=== PATIENT | female | born 1980 | race Caucasian/White ===

== ENCOUNTER 2019-12-15 19:55 | Emergency (ER) | payer OTHER, SELFPAY ==
[2019-12-15 19:59] VITALS: BP 115/87; PULSE 103; RESP 16; TEMP 36.8; O2SAT 100
[2019-12-15] MEDS: TETANUS,DIPHTHERIA,AC PERTUSSIS ADULT (0.5 ML) BOOSTRIX IM (20:44)
--- NOTE | 2019-12-15 20:50 | ED.SKABFB ---
HPI - Skin/Abscess/Foreign Bdy General Chief complaint: Skin/Abscess/Foreign Body Stated complaint: hand lac Time Seen by Provider: 12/15/19 20:09 Source: patient Mode of arrival: ambulatory Limitations: no limitations History of Present Illness HPI narrative: This patient is a 39 year old female right hand dominant who presents for evaluation of a left thumb laceration. She reports she accidentally cut her left thumb at tip. She report it cut under the tip of her nail. She was able to get bleeding controlled on arrival. She reports she took ibuprofen for her pain. She denies difficulty moving her thumb. Related Data Allergies Allergy/AdvReac Type Severity Reaction Status Date / Time Penicillins Allergy Unknown Swelling Verified 12/15/19 20:04 of Lip/Tongue/Throat Review of Systems Review of Systems: All systems reviewed & are unremarkable except as noted in HPI and below PMFSH Past Medical History Medical History (Updated 12/15/19 @ 21:00 by Ginger Harper MD) Patient denies medical problems Surgical History Surgical History (Updated 12/15/19 @ 20:59 by Ginger Harper MD) Hx of appendectomy Social History Social History (Updated 12/15/19 @ 21:08 by Ginger Harper MD) Smoking status: Current every day smoker Exam Const: General: no acute distress and alert Orientation/consciousness: patient oriented x3 HENMT: Head: normocephalic Face and sinus: face symmetric Mouth: Yes Normal oral and palatal mucosa present and Yes oropharynx normal Throat: posterior oropharynx normal Eyes: EOM: EOMs intact bilaterally Resp: Effort & Inspection: normal respiratory effort Neuro: General: patient oriented x3 and moves all extremities Extrem: Other: left thumb with full ROM. there is 0.5 cm diagnonal laceration to ulnar side lateral of tip of thumb with small piece of nail involved. No bleeding. Psych: Mental Status: mental status grossly normal Affect: normal affect Course Reevaluation(s) Reevaluation #1: Patient did not want me to have to use needles for treatment so she declined digital block and sutures. I removed tip of nail that was cut with scissors. Cleaned with saline . Applied antibiotic ointment to tip and applied pressure and bandage. Bleeding is controlled. I discussed wound care with patient . Date: 12/15/19 Time: 20:54 Vital Signs Vital signs: Vital Signs Temperature 98.3 F 12/15/19 19:59 Pulse Rate 103 H 12/15/19 19:59 Respiratory Rate 16 12/15/19 19:59 Blood Pressure 115/87 12/15/19 19:59 Pulse Oximetry 100 12/15/19 19:59 Temperature 98.3 F 12/15/19 19:59 Pulse Rate 103 H 12/15/19 19:59 Respiratory Rate 16 12/15/19 19:59 Blood Pressure 115/87 12/15/19 19:59 Pulse Oximetry 100 12/15/19 19:59 Discharge Plan Discharge Clinical Impression: Avulsion of skin of finger Qualifiers: Encounter type: initial encounter Qualified Code(s): S61.209A - Unspecified open wound of unspecified finger without damage to nail, initial encounter Laceration of finger with damage to nail Qualifiers: Encounter type: initial encounter Finger: thumb Laterality: left Patient Disposition: Home, Self-Care Condition: Stable Instructions: Antibiotic Form Additional Instructions: Today you were evaluated for a finger laceration. Part of your nail was cut off. You can keep bandage on for 24 hours. Keep it covered while you work to prevent exposures. Keep clean with soap and water. If it rebleeds just apply pressure and wrap with bandage. Follow-up/Referrals: PHYSICIAN,[facility] MANAGER [Primary Care Provider] - Artis Healy DO [Physician] - Discharge Date/Time: 12/15/19 21:05
--- NOTE | 2019-12-15 20:55 | PC.NURSE ---
Bupivacaine medication not given and held by EDP.
[2019-12-15 21:04] VITALS: BP 116/73; PULSE 76; RESP 18; O2SAT 100
== END 2019-12-15 21:05 | disposition home or self-care (01) ==
PROVIDERS: Emergency Provider General Practice
DX: S61.012A Laceration without foreign body of left thumb without damage to nail, initial encounter (principal); W27.4XXA Contact with kitchen utensil, initial encounter; F17.200 Nicotine dependence, unspecified, uncomplicated; Z23 Encounter for immunization
CPT/HCPCS: 90471; 90715; 99282

== ENCOUNTER 2021-03-17 12:31 | Outpatient (CLI) | payer BC, OTHER, SELFPAY | END 2021-03-17 12:32 | disposition home or self-care (01) | LOC: ANHLAB 12:35 | PROVIDERS: Visit Provider Obstetrics & Gynecology | DX: O02.1 Missed abortion (principal); Z3A.00 Weeks of gestation of pregnancy not specified | CPT/HCPCS: 36415; 84702; 86850; 86900; 86901 ==

== ENCOUNTER → 2021-03-29 01:03 | Outpatient (CLI) | payer BC, OTHER, SELFPAY ==
[2021-03-29 21:22] LABS: SARS-CoV-2 RNA PCR Positive
== END ==
PROVIDERS: Visit Provider Obstetrics & Gynecology
DX: Z01.812 Encounter for preprocedural laboratory examination (principal); U07.1 COVID-19
CPT/HCPCS: C9803; U0003; U0005

== ENCOUNTER 2021-03-31 01:38 | Day surgery (SDC) | payer BC, OTHER, SELFPAY ==
[2021-03-24 11:34] VITALS: BMI 27.4
--- NOTE | 2021-03-24 11:43 | PC.NURSE ---
Report to the Outpatient Waiting Room, entrance under the green pavilion located off [facility], at time 0900 on date 03/31/21. OR Time: 1100. - You and your visitor will be asked a series of questions to screen for COVID 19 for your protection. - A mask is required within the hospital. - Only one visitor is allowed at this time. Patient visitors will be guided where to wait when not with patient. Preoperative COVID Testing Requirements: No COVID Test needed if: (proof is required; if not received patient will have Rapid Test prior to entry) - Patient has received COVID Vaccine at least 14 days prior to procedure date or - Patient has positive COVID test result within last 90 days of surgery date. COVID Test needed if above criteria is not met If not COVID vaccinated a COVID test must be conducted within 72 hours of surgery and patient is asked to isolate self from time of testing until procedure. You will go to the [facility] for your COVID testing. The [facility] is located at the corner of [address] from [facility]. COVID TEST 03/29 AT 0935 You will only be called if COVID results are positive and your surgeon may reschedule your elective surgery date. Patients may have clear liquids (water, carbonated beverages, clear teas, apple juice) until 3 hours prior to surgery with a maximum of 20 ounces. - No food from midnight until time of surgery Take the following medications with a SIP of water the morning of surgery: NONE Medications to discontinue per physician: N/A Date to take last dose: N/A Please no make-up, nail jamaican, hairspray, perfume, deodorant, or body powder the day of surgery. No jewelry (including any body piercings) or valuables the day of surgery, leave them at home. Please take a shower or bath the night before, or the morning of, surgery with an antibacterial soap. Wear comfortable, loose fitting clothing. - Jewelry must be removed prior to entering the operating room. Rings and piercings that are not removed may be cut off. - The hospital will not accept responsibility for valuables. - Please leave all valuables, including medications, at home the day of surgery. If you are going home after surgery, a licensed class c truck driver must drive you home. - NO public transportation without another adult. - We recommend that an adult stay with you for 24 hours following discharge. - We also recommend that you do not drive, make important decision, drink alcoholic beverages, or take any drugs that were not prescribed by your health care provider for at least 24 hours after your discharge time. Follow any additional instructions given to you from your surgeon. Telephone instructions given to WALT JACKSON and asked if any additional questions and then verbalized understanding. Patient advised to call surgeon office or pre surgery nurse liaison [phone] if any additional questions.
--- NOTE | 2021-03-31 07:50 | P.PNAN_ITS ---
Anes - Initial Pre Proc Eval Procedure: Operation Date: 03/31/21 15:15 Proposed Procedures p Suction Dilation and Curettage - Adan Acevedo MD Date/Time: 03/31/21 07:50 Surgeon: Adan Acevedo MD Pre Op Diagnosis: Missed Ab Patient Data Age: 40 Gender: F Height: 1.63 m Weight: 72.57 kg Allergies Allergy/AdvReac Type Severity Reaction Status Date / Time Penicillins Allergy Unknown Swelling Verified 03/31/21 14:45 of Lip/Tongue/Throat codeine Allergy Hives Verified 03/31/21 14:45 Home Medications Medication Instructions Recorded Confirmed Type No Home Medications 03/24/21 03/31/21 History Patient hx anesthesia problems: none Family hx anesthesia problems: none Results Review: All pre-operative results and documents have been reviewed as part of the pre-operative evaluation. [facility] Past Medical History Medical History Patient denies medical problems Surgical History Surgical History Hx of appendectomy Social History Social History Smoking packs per day: 0.75 Smoking cigarettes per day: 15.0 Years smoked: 20 Smoking pack-years: 15.00 Smoking status: Current every day smoker Tobacco type: cigarettes Alcohol intake: never Substance use: current Substance use type: marijuana Last use: 03/16/21 Living arrangements: with family Additional living arrangements comments: DAUGHTER Spiritual care concerns: No Anes - Eval Final PreProcedure Day of Procedure 03/31/21 07:50 Patient weight: overweight Heart: regular rate and rhythm Lungs: clear to auscultation and normal air movement Airway: Mallampati scale class II Neurological: alert and oriented Last oral intake: >/= 8 hours ASA classification: II Emergent: no Anesthetic plan: proceed Anesthesia type and monitoring: general GIVS and standard monitoring Results Review: All pre-operative results and documents have been reviewed as part of the pre-operative evaluation. Informed Consent: The patient's anesthetic plan and its attendant risks and benefits were discussed with the patient/family/POA. Questions were solicited and answers provided to the satisfaction of the patient/family/POA.
--- NOTE | 2021-03-31 13:07 | PM.IMHP ---
H&P: HPI History of Present Illness Date/Time: 03/31/21 13:07 40 y/o whose LMP would put her at 10w4d gestation. She had an ultrasound exam in the office on 03/17 showing an IUP with CRL 6 weeks gestation, no embryonic cardiac activity. She had a bHCG of 42,704. MBT Apos. No bleeding. No cramping. Initially had opted for expectant management, but is now interested in surgical management. Chief Complaint: Miscarriage Review of Systems Review of Systems: All systems reviewed & are unremarkable except as noted in HPI and below PMFSH Past Medical History Medical History Patient denies medical problems Surgical History Surgical History Hx of appendectomy Social History Social History Smoking packs per day: 0.75 Smoking cigarettes per day: 15.0 Years smoked: 20 Smoking pack-years: 15.00 Smoking status: Current every day smoker Tobacco type: cigarettes Alcohol intake: never Substance use: current Substance use type: marijuana Last use: 03/16/21 Living arrangements: with family Additional living arrangements comments: DAUGHTER Spiritual care concerns: No Meds Home Medications and Allergies Home Medications Medication Instructions Recorded Confirmed Type No Home Medications 03/24/21 03/24/21 History Allergies Allergy/AdvReac Type Severity Reaction Status Date / Time Penicillins Allergy Unknown Swelling Verified 03/24/21 11:33 of Lip/Tongue/Throat codeine Allergy Hives Verified 03/24/21 11:34 Exam Const: Orientation/consciousness: patient oriented x3 Other: Well-developed, well-nourished female in no acute distress. Neck: Thyroid: thyroid normal Lymphatic: no lymphadenopathy noted (in neck, axilla or inguinal nodes) Resp: Effort & Inspection: normal respiratory effort Auscultation: clear to auscultation bilaterally Cardio: Rate: regular rate Rhythm: regular rhythm Heart sounds: S1 normal heart sound present and S2 normal heart sound present GI: Other: ABD: Soft, nontender, nondistended. No guarding or rebound tenderness. No hepatosplenomegaly. : General: Yes no CVA tenderness Other: External genitalia: normal female hair distribution, without lesion. Urethral meatus: no lesion, non prolapsed. Bladder: no mass, nontender Vagina: well-estrogenized, without lesion or discharge. No cystocele or rectocele. Cervix: no lesion or discharge. Uterus: small, anteverted, freely mobile, nontender Adnexa: no mass or tenderness. Anus/perineum: no lesions, nontender Back/Spine/Pelvis: Back: no CVA tenderness Skin: General skin exam: normal color and no rashes or lesions noted Neuro: General: patient oriented x3 Extrem: Other: Extremities: nontender with no edema Psych: Mental Status: mental status grossly normal Affect: normal affect Assessment and Plan Assessment and plan (1) Missed : Code(s): O02.1 - Missed Status: Acute Assessment and Plan: A: Missed SAB. P: She desires surgical management as above. I have offered her a dilation and suction curettage. She understands risks of surgery to include risks of anesthesia, risks of pain, infection, bleeding, blood products, thromboembolic phenomena and damage to adjacent structures such as bowel, bladder, ureters, blood vessels and nerves. She understands all these risks and elects to proceed with surgery.
[2021-03-31] MEDS: ACETAMINOPHEN 500 MG TABLET 1000 MG PO (14:35)
[2021-03-31] MEDS: LACTATED RINGERS 1,000 ML 30 ML IV CONT (14:40)
[2021-03-31 14:59] VITALS: BP 100/58; PULSE 78; RESP 18; TEMP 36.7; O2SAT 99
--- NOTE | 2021-03-31 15:06 | WPDHPUPDATE1 ---
History and Physical Update Update Date/Time: 03/31/21 15:06 History and Physical has been reviewed, including an updated exam of the patient. There are NO changes in the patient's condition. Risks, benefits, and alternatives have been discussed and questions answered. Patient agrees to proceed with procedure.
[2021-03-31 15:42] VITALS: BP 101/64; PULSE 79; RESP 16; O2SAT 96
--- NOTE | 2021-03-31 15:45 | W.PM.PROC2 ---
Procedure Note - Detailed Date of Procedure 03/31/21 Pre-op Diagnosis Missed Ab Post-op Diagnosis same Procedure Performed Dilation and suction curettage Surgeon Adan Acevedo MD Anesthesia MAC and local (1% lidocaine) Findings POC noted Description of Procedure The patient was taken to the operating room where she was prepared and draped in the usual sterile fashion in the dorsal lithotomy position. The bladder was drained with a red rubber catheter. A sterile speculum was placed into the vagina. The anterior lip of the cervix was grasped with a single-tooth tenaculum. Ten mL of 1% lidocaine was administered in a paracervical block. The cervix was gently dilated using Hegar dilators until an 8mm dilator could be passed. The 8mm curved tip suction curette was advanced. Suction curettage was performed and products of conception were aspirated. Sharp curettage was then performed until a good uterine cry was noted. A final pass with the suction curette was made. The tenaculum was removed. Hemostasis was excellent. Sponge, lap, needle and instrument counts were correct. The patient was taken to the recovery room in stable condition. I was present and scrubbed for the entire procedure. Estimated Blood Loss 50 Drains No Packing No Pathology yes (endometrial curettings) Complications None Condition stable Disposition PACU
--- NOTE | 2021-03-31 15:57 | SUR.PHASEII ---
PT AWAKE AND ALERT. DENIES PAIN OR NAUSEA.
--- NOTE | 2021-03-31 16:06 | SUR.PHASEII ---
PT AWAKE AND ALERT. TALKATIVE. DENIES PAIN OR NAUSEA. STATES READY TO GO HOME AND EAT
[2021-03-31 16:07] VITALS: BP 98/65; PULSE 70; RESP 14; O2SAT 97
== END 2021-03-31 16:32 | disposition home or self-care (01) ==
PROVIDERS: Visit Provider Obstetrics & Gynecology
PROC: (CPT 59820; principal; 2021-03-31 15:15)
DX: O02.1 Missed abortion (principal); Z3A.10 10 weeks gestation of pregnancy; F17.210 Nicotine dependence, cigarettes, uncomplicated; F12.90 Cannabis use, unspecified, uncomplicated
CPT/HCPCS: 59820; 88305; A9270; C9803; J1885; J2250; J2704; J3010; J7120; U0003; U0005

== ENCOUNTER 2021-04-04 15:08 | Emergency (ER) | payer BC, OTHER, SELFPAY ==
--- NOTE | ~2021-04-04 | US_ITS ---
EXAMINATION: US pelvic complete w TV DATE: 04/04/2021 18:12 INDICATION: Vaginal bleeding TECHNIQUE: Multiple transabdominal and endovaginal sonographic images of the pelvis were obtained. COMPARISON: None. FINDINGS: The uterus measures 9.1 x 4.9 x 7.2 cm. The endometrial complex measures 10 mm. There is an approximately 3.1 x 2.8 x 2.4 cm heterogeneous area in the lower uterine segment/endocervical canal. The right ovary measures 3.5 x 1.5 x 1.4 cm. The left ovary measures 2.4 x 1.6 x 1.7 cm. There is no rmal vascular flow in the ovaries. There is a small volume of likely physiologic free fluid in the pe lvis. IMPRESSION: 1. Heterogeneous area in the lower uterine segment/endocervical canal, likely hematoma. Reviewed, dictated and finalized at location F. PRINTING MACHINE OPERATOR IMPRESSION: 1. Heterogeneous area in the lower uterine segment/endocervical canal, likely h ematoma.
[2021-04-04 15:36] VITALS: BP 111/72; PULSE 82; RESP 16; TEMP 36; O2SAT 99
--- NOTE | 2021-04-04 17:26 | ED.GENADULT ---
HPI - General Adult General Chief complaint: Vaginal Bleeding Stated complaint: vag bleeding, D & C / Time Seen by Provider: 04/04/21 16:55 Source: patient Mode of arrival: ambulatory Limitations: no limitations History of Present Illness HPI narrative: Patient presents for evaluation of vaginal bleeding. She indicates she underwent a D+C four days ago per Dr Acevedo. She had some mild spotting following the procedure. She also had some mild pain that she thought was gas pain . 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 She has gone through two pads since symptom onset. She states bleeding has slowed down and she now has mild spotting. She denies any fever, chills, nausea and vomiting. She has some mild left sided pelvic pain that radiates into her back. She had some problems with constipation recently. She took a dulcolax and was able to have a bowel movement today. Surgical history positive for appendectomy and appendectomy. Related Data Allergies Allergy/AdvReac Type Severity Reaction Status Date / Time Penicillins Allergy Unknown Swelling Verified 03/31/21 14:45 of Lip/Tongue/Throat codeine Allergy Hives Verified 03/31/21 14:45 Review of Systems Review of Systems: CONSTITUTIONAL: Denies fever, chills, or sweats. EYES: Denies visual changes, redness, or discharge. ENT: Denies rhinorrhea, congestion, sore throat, or otalgia. CARDIOVASCULAR: Denies chest pain, palpitations, or edema. RESPIRATORY: Denies cough or dyspnea. GASTROINTESTINAL: Denies abdominal pain, nausea, vomiting, or diarrhea. GENITOURINARY: Reports pelvic pain. Reports vaginal bleeding earlier, now improved SKIN: Denies rash or itching. MUSCULOSKELETAL: Denies back pain, joint pain, or myalgia. NEUROLOGIC: Denies headache, numbness, dizziness, or weakness. PSYCHIATRIC: Denies anxiety or depression. [facility] Past Medical History Medical History Patient denies medical problems Surgical History Surgical History History of History of dilatation and curettage Hx of appendectomy Family History Family History Mother No pertinent past medical history Social History Social History Smoking packs per day: 0.75 Smoking cigarettes per day: 15.0 Years smoked: 20 Smoking pack-years: 15.00 Smoking status: Current every day smoker Tobacco type: cigarettes Alcohol intake: never Substance use: current Substance use type: marijuana Last use: 03/16/21 Additional living arrangements comments: DAUGHTER Spiritual care concerns: No Exam Narrative: GENERAL: Well-appearing, well-nourished, and in no acute distress. HEAD: Normocephalic, atraumatic. EYES: PERRLA and EOMI. ENT: Nares clear, no rhinorrhea or epistaxis. Mucous membranes moist. Oropharynx without tonsillar hypertrophy exudate or other lesions. Bilateral TMs pearly matute nonbulging NECK: Supple. No adenopathy or masses. No carotid bruits or JVD CHEST: Clear to auscultation. No respiratory distress. No wheezes rales or rhonchi HEART: Regular rate and rhythm. No murmur heard. Normal peripheral pulses. ABDOMEN: Soft, mild tenderness in suprapubic region and BLQ without rebound. Abdomen is nondistended, normal active bowel sounds. GENITAL: No external genital lesions. No adnexal tenderness. No cervical motion tenderness. There is a moderate amount of dried blood noted in the vaginal vault EXTREMITIES: Normal range of motion. No edema. SKIN: Warm, dry, no rash. NEURO: No focal deficits. Alert and oriented x3. PSYCH: Normal mood and affect. Course Course Emergency Course: This is a 40-year-old female who presented with complaints of vaginal bleeding following a D&C. By the
[2021-04-04 17:35] VITALS: BP 110/76; RESP 16; TEMP 36.8; O2SAT 99
[2021-04-04 17:51] LABS: Basophils Absolute Auto 0.1 K/mm3 (0.0-0.1); Basophils Percent Auto 0.3 % (0.2-1.2); Eosinophils Absolute Auto 0.1 K/mm3 (0-0.3); Eosinophils Percent Auto 0.5 % (0-4.4); Hematocrit 34.9 % (37.0-47.0); Hemoglobin 11.4 g/dL (12.0-15.0); Immature Granulocyte Absolute 0.07 K/mm3 (0.00-0.031); Immature Granulocyte Percent A 0.5 % (0-0.5); Lymphocytes Percent Auto 9.7 % (18.3-44.2); Mean Corpuscular HGB Conc 32.7 g/dl (32-36); Mean Corpuscular Hemoglobin 30.6 pg (26-34); Mean Corpuscular Volume 93.6 fl (80-100); Mean Platelet Volume 8.6 fl (7.4-10.4); Monocytes Absolute Auto 0.7 K/mm3 (0.1-0.6); Monocytes Percent Auto 4.6 % (2.6-8.5); Neutrophils Absolute Auto 13.1 K/mm3 (1.3-6.7); Neutrophils Percent Auto 84.4 % (45.5-73.1); Platelet Count Result 447 k/mm3 (150-375); Red Blood Count 3.73 M/mm3 (4.2-5.4); Red Cell Distribution Width 14.6 % (11.5-14.5); White Blood Count 15.5 K/mm3 (4.5-10.0)
[2021-04-04 18:01] LABS: Prothrombin Time 13.1 Seconds (11.1-14.7)
[2021-04-04 18:02] LABS: Partial Thromboplastin Time 32.9 SECONDS (22.3-36.8)
[2021-04-04 18:07] LABS: Alanine Aminotransferase 17 U/L (4-35); Albumin Level 4.1 g/dL (3.5-5.1); Alkaline Phosphatase 34 U/L (38-126); Anion Gap 10 mmol/L (8-16); Aspartate Amino Transferase 22 U/L (14-36); Bilirubin,Total 0.3 mg/dL (0.2-1.3); Blood Urea Nitrogen 10 mg/dL (7-17); Calcium 9.3 mg/dL (8.4-10.2); Carbon Dioxide 23 mmol/L (22-30); Chloride 104 mmol/L (98-107); Estimated CRCL calculation 122 ml/min; Estimated Glomerular Filt Rate > 60; Glucose 95 mg/dL (65-110); Lipase 34 U/L (23-300); Potassium 3.9 mmol/L (3.4-5.0); Sodium 137 mmol/L (137-145)
[2021-04-04 18:39] LABS: Add Urine Microscopic? YES; Appearance Urine Cloudy (Clear); Bilirubin Urine Negative (Negative); Blood Urine 2+ (Negative); Color Urine Amber (Yellow); Glucose Urine UA Negative (Negative); Ketones Urine Negative (Negative); Leukocyte Esterase Ur Negative LEU/UL (Negative); Mucus Urine Rare /lpf; Nitrate Urine Negative (Negative); Protein Urine Negative (Negative); RBC Urine >75 /hpf (0-2); Specific Grav Ur 1.025 (1.001-1.035); Squamous Epithelial Cell Urine Occasional /hpf (Few); Urobilinogen Urine Negative mg/dL (<2.0)
--- NOTE | 2021-04-04 19:27 | PC.NURSE ---
RN assisted provider with vaginal exam, pt tolerated well, SO at bedside during the exam
[2021-04-04 20:11] VITALS: BP 112/72; PULSE 78; RESP 18; O2SAT 98
== END 2021-04-04 20:15 | disposition home or self-care (01) ==
PROVIDERS: Emergency Provider Nurse Practitioner; PCP Obstetrics & Gynecology
DX: N99.840 Postprocedural hematoma of a genitourinary system organ or structure following a genitourinary system procedure (principal); F17.210 Nicotine dependence, cigarettes, uncomplicated
CPT/HCPCS: 36415; 76830; 76856; 80053; 81001; 81025; 83690; 85025; 85610; 85730; 99284

== ENCOUNTER 2022-03-15 10:47 | Emergency (ER) | payer BC, OTHER, SELFPAY ==
[2022-03-15 11:48] VITALS: BP 103/73; PULSE 97; RESP 18; TEMP 36.6; O2SAT 100
--- NOTE | 2022-03-15 12:04 | ED.URI ---
HPI - URI/Sore Throat General Chief Complaint: Upper Respiratory Infection Stated Complaint: fever,congestion,bilateral ear pain Time Seen by Provider: 03/15/22 12:05 Source: patient and RN notes reviewed Mode of arrival: ambulatory Limitations: no limitations History of Present Illness HPI Narrative: 41-year-old female presented for complaint of headache, body aches, sinus pressure/congestion, cough, fever/chills. onset 2 days. Endorses 1 episode of diarrhea today. She is taking DayQuil NyQuil for symptoms. She denies sick contacts But states [place] a [place] She denies shortness of breath, wheezing, vomiting. Smokes 1PPD and marijuana. MD elicited complaint: cough Related Data Home Medications Medication Instructions Recorded Confirmed norethindrone (contraceptive) 0.35 0.35 mg PO DAILY 03/15/22 03/15/22 mg tablet Allergies Allergy/AdvReac Type Severity Reaction Status Date / Time Penicillins AdvReac Severe Swelling Verified 03/15/22 11:42 of Lip/Tongue/Throat codeine AdvReac Intermediate Hives Verified 03/15/22 11:42 Review of Systems Review of Systems: ROS per HPI [facility] Past Medical History Medical History Patient denies medical problems Surgical History Surgical History History of History of dilatation and curettage Hx of appendectomy Family History Family History Mother No pertinent past medical history Social History Social History Smoking packs per day: 0.75 Smoking cigarettes per day: 15.0 Years smoked: 20 Smoking pack-years: 15.00 Smoking status: Current every day smoker Tobacco type: cigarettes Alcohol intake: never Substance use: current Substance use type: marijuana Last use: 03/16/21 Additional living arrangements comments: DAUGHTER Spiritual care concerns: No Exam Narrative: GENERAL: Ill-appearing, nontoxic EYES: PERRLA, conjunctivae clear ENT: Mucous membranes moist. TMs pearly matute with dull light reflex bilaterally; no tragal tenderness. Oropharynx erythematous without lesions or exudate, tonsils absent; no drooling, no hoarseness, no trismus, uvula midline. CHEST: Clear to auscultation, breath sounds equal. HEART: Regular rate and rhythm. No murmur heard. SKIN: Warm, dry, no rash. Course Course Emergency Course: Patient is aware of diagnosis, understands and agrees to treatment plan. Anticipatory guidance given. Patient agrees to follow-up as directed and is aware of reasons to seek care at the emergency department. Portions of this record may have been created with voice recognition software Level of Care: Express Care Visit Vital Signs Vital signs: Vital Signs Temperature 97.8 F 03/15/22 11:48 Pulse Rate 97 03/15/22 11:48 Respiratory Rate 18 03/15/22 11:48 Blood Pressure 103/73 03/15/22 11:48 Pulse Oximetry 100 03/15/22 11:48 Oxygen Delivery Room Air 03/15/22 11:48 Temperature 97.8 F 03/15/22 11:48 Pulse Rate 97 03/15/22 11:48 Respiratory Rate 18 03/15/22 11:48 Blood Pressure 103/73 03/15/22 11:48 Pulse Oximetry 100 03/15/22 11:48 Oxygen Delivery Room Air 03/15/22 11:48 reviewed MDM - URI/Sore Throat MDM Narrative Medical decision making narrative: Due to lack of resources, unable to test for influenza at this time. High suspicion for flu. COVID test result reviewed with patient. Patient verbalizes understanding. Advised supportive measures and signs and symptoms to go to the ER. Patient is appropriate for outpatient treatment and follow-up. Differential Diagnosis Differential diagnosis: Likely upper respiratory infection, sinusitis, viral infection and influenza Lab Data Labs: Lab Results
== END 2022-03-15 12:38 | disposition home or self-care (01) ==
PROVIDERS: Emergency Provider Nurse Practitioner Family
DX: B34.9 Viral infection, unspecified (principal); F17.210 Nicotine dependence, cigarettes, uncomplicated; Z20.822 Contact with and (suspected) exposure to COVID-19
CPT/HCPCS: 87426; 99213; C9803; G0463

== ENCOUNTER 2022-06-28 17:39 | Emergency (ER) | payer BC, OTHER, SELFPAY ==
--- NOTE | 2022-06-28 17:41 | ED.EAR ---
HPI - Ear Problem General Chief complaint: Ear Stated complaint: rt ear discomfort Time Seen by Provider: 06/28/22 17:41 Source: patient Mode of arrival: ambulatory Limitations: no limitations History of Present Illness HPI Narrative: Jazmine is a 42-year-old female patient presenting to the clinic today with complaints of right ear pain/congestion, swishing noise times 2 weeks. She reports she is also having some dizziness with this. Related Data Home Medications Medication Instructions Recorded Confirmed norethindrone (contraceptive) 0.35 0.35 mg PO DAILY 03/15/22 06/28/22 mg tablet Allergies Allergy/AdvReac Type Severity Reaction Status Date / Time Penicillins AdvReac Severe Swelling Verified 06/28/22 17:50 of Lip/Tongue/Throat codeine AdvReac Intermediate Hives Verified 06/28/22 17:50 Review of Systems Review of Systems: Pertinent positives per HPI. Patient denies any fever, chills, rash, headache, visual changes, dizziness, cough, shortness of breath, chest pain, palpitations, nausea, vomiting, diarrhea, constipation, abdominal pain, or any urinary issues. PMFSH Past Medical History Medical History Patient denies medical problems Surgical History Surgical History History of History of dilatation and curettage Hx of appendectomy Family History Family History Mother No pertinent past medical history Social History Social History Smoking packs per day: 0.75 Smoking cigarettes per day: 15.0 Years smoked: 20 Smoking pack-years: 15.00 Smoking status: Current every day smoker Tobacco type: cigarettes Alcohol intake: never Substance use: current Substance use type: marijuana Last use: 03/16/21 Living arrangements: with family Additional living arrangements comments: DAUGHTER Spiritual care concerns: No Comments At the time of my signature, I reviewed and agree with the nursing past medical, surgical, social, and family history. There is no relevant family history pertinent to the patient complaint. Exam Narrative: General: Well-developed, well nourished, in no apparent distress Head: Normocephalic, atraumatic Eyes: Pupils equally round and reactive to light bilaterally, EOM intact, sclera and conjunctive clear, no discharge, lids normal Ears: Left tMs intact and clear, right TM intact, retracted, dull, ear canals clear, mild tenderness to palpation over the right eustachian tube, no drainage, grossly hearing normal. Nose: Nares patent, clear discharge, no inflammation, no sinus tenderness. Mouth: Oral pharynx without lesions or masses, good dentition, MMM. Neck: Supple, trachea midline, no enlargement of anterior or posterior cervical nodes, no thyroid masses or goiter palpable. Cardio: Regular rate and rhythm, s1 and s2 normal, no murmur appreciated. Resp: Clear to auscultation bilaterally, no rhonchi, rales, wheezing or rubs Course Course Emergency Course: Portions of this record may have been created with voice recognition software. Level of Care: Express Care Visit Vital Signs Vital signs: Vital signs reviewed Medical Decision Making MDM Narrative Medical decision making narrative: At the time of visit patient is resting comfortably on the exam table. I suspect the patient may have you right-sided eustachian tube dysfunction. Supportive measures were discussed with the patient she voiced understanding of the discharge instructions and agrees to treatment plan. Prescription for prednisone was sent to the pharmacy. If symptoms persist recommend follow-up with her PCP or ENT to rule out Meniere disease. Differential Diagnosis Differential Diagnosis: Otitis media, otitis externa, eustachian
[2022-06-28 17:47] VITALS: BP 103/87; PULSE 93; RESP 16; TEMP 36.8; O2SAT 100
== END 2022-06-28 18:06 | disposition home or self-care (01) ==
PROVIDERS: Emergency Provider Nurse Practitioner Family
DX: H69.91 Unspecified Eustachian tube disorder, right ear (principal); F17.210 Nicotine dependence, cigarettes, uncomplicated; F12.90 Cannabis use, unspecified, uncomplicated
CPT/HCPCS: 99213; G0463

== ENCOUNTER 2022-07-15 11:34 | Emergency (ER) | payer BC, OTHER, SELFPAY ==
[2022-07-15 11:40] VITALS: BP 107/78; PULSE 96; RESP 16; TEMP 36.6; O2SAT 100
--- NOTE | 2022-07-15 12:06 | ED.URI ---
HPI - URI/Sore Throat General Chief Complaint: Upper Respiratory Infection Stated Complaint: Sore Throat,Sinus Pressure Time Seen by Provider: 07/15/22 11:55 Source: patient and RN notes reviewed Mode of arrival: ambulatory Limitations: no limitations History of Present Illness HPI Narrative: Patient presents today with a 4 to five-day history of cough, sinus pain and pressure, postnasal drip. She also had a fever up to 101 last night. She has been taking Tylenol and ibuprofen as well as using Flonase. Reports sick contact with daughter who was diagnosed with a URI. Daughter tested negative for COVID-19 and influenza. Related Data Home Medications Medication Instructions Recorded Confirmed norethindrone (contraceptive) 0.35 0.35 mg PO DAILY 03/15/22 07/15/22 mg tablet Allergies Allergy/AdvReac Type Severity Reaction Status Date / Time Penicillins AdvReac Severe Swelling Verified 07/15/22 11:40 of Lip/Tongue/Throat codeine AdvReac Intermediate Hives Verified 07/15/22 11:40 Review of Systems Review of Systems: CONSTITUTIONAL: Denies body aches, chills, or sweats.+ fever EYES: Denies visual changes, redness, or discharge. ENT: Denies rhinorrhea, sore throat, or otalgia.+ congestion, sinus pressure, postnasal drip CARDIOVASCULAR: Denies chest pain, palpitations, or edema. RESPIRATORY: Denies dyspnea.+ cough GASTROINTESTINAL: Denies abdominal pain, nausea, vomiting, or diarrhea. GENITOURINARY: Denies dysuria or hematuria. SKIN: Denies rash, itching, or wounds. MUSCULOSKELETAL: Denies back pain, joint pain, or myalgia. NEUROLOGIC: Denies headache, numbness, tingling, or weakness. PSYCH: Denies depression or anxiety. [facility] Past Medical History Medical History Patient denies medical problems Surgical History Surgical History History of History of dilatation and curettage Hx of appendectomy Family History Family History Mother No pertinent past medical history Social History Social History Smoking packs per day: 0.75 Smoking cigarettes per day: 15.0 Years smoked: 20 Smoking pack-years: 15.00 Smoking status: Current every day smoker Tobacco type: cigarettes Alcohol intake: never Substance use: current Substance use type: marijuana Last use: 03/16/21 Living arrangements: with family Additional living arrangements comments: DAUGHTER Spiritual care concerns: No Comments At time of signature, I have reviewed and agree with nursing past medical, surgical, social and family history unless otherwise noted. Please see nursing chart for further information. There is no relevant family history pertinent to the presenting complaint Exam Narrative: GENERAL: Mildly ill-appearing, well-nourished, and in no acute distress. HEAD: Normocephalic, atraumatic. EYES: EOMI. No redness or drainage. Conjunctivae normal. ENT: Mucous membranes pink and moist. Nares congested. Bilateral nasal turbinates are swollen with rhinorrhea. TMs normal bilaterally. Throat normal with clear postnasal drainage. Uvula midline. NECK: Normal AROM. Supple. No lymphadenopathy. CHEST: No respiratory distress. Clear to auscultation. Tight cough noted. HEART: Regular rate and rhythm. No murmur appreciated. Normal peripheral pulses. EXTREMITIES: Normal range of motion. No edema. SKIN: Warm, dry, no rash. Capillary refill normal. Normal skin turgor. NEURO: No focal deficits. Alert and oriented x3. Gait steady. PSYCH: Normal affect. No signs of depression or anxiety. Course Course Level of Care: Express Care Visit Vital Signs Vital signs: Vital Signs Temperature 97.8 F 07/15/22 11:40 Pulse Rate 96 07/15/22 11:40 Respiratory Rate 16
== END 2022-07-15 12:10 | disposition home or self-care (01) ==
PROVIDERS: Emergency Provider Nurse Practitioner
DX: J06.9 Acute upper respiratory infection, unspecified (principal); F17.210 Nicotine dependence, cigarettes, uncomplicated
CPT/HCPCS: 99213; G0463

== ENCOUNTER 2023-01-09 17:36 | Emergency (ER) | payer BC, OTHER, SELFPAY ==
[2023-01-09 17:52] VITALS: BP 120/76; PULSE 90; RESP 16; TEMP 36.4; O2SAT 100
--- NOTE | 2023-01-09 18:03 | ED.DENTAL ---
HPI - Dental/Oral General Chief complaint: Dental/Oral Stated complaint: dental pain Time Seen by Provider: 01/09/23 18:03 Source: patient, RN notes reviewed and old records reviewed Mode of arrival: ambulatory Limitations: no limitations History of Present Illness HPI Narrative: 42 year old [facility] with complaints of most posterior right upper molar pain and swelling and redness of her gums since Monday night. Patient reports some swelling to the right side of her face and some terrible taste in her mouth. Patient reports that she has not had any fevers, chills or sweats or any body aches. Patient reports that she has gargled with salt water and she has been taking Ibuprofen and also Tylenol alternating for her discomfort. Patient does not have an established dentist but knows of one family members go to and she does have dental insurance. MD Complaint: tooth pain Location: Tooth # (2) Onset (ago): day(s) (3) Severity scale (1-10): 3 Treatment prior to arrival: oral analgesic (Tylenol or Ibuprofen, salt water gargles) Related Data Home Medications Medication Instructions Recorded Confirmed levonorgestrel 21 mcg/24 hours (8 See Rx Instructions .Route .COMPLEX 01/09/23 01/09/23 yrs) 52 mg intrauterine device (Mirena) Allergies Allergy/AdvReac Type Severity Reaction Status Date / Time Penicillins AdvReac Severe Swelling Verified 01/09/23 17:45 of Lip/Tongue/Throat codeine AdvReac Intermediate Hives Verified 01/09/23 17:45 Review of Systems Review of Systems: CONSTITUTIONAL: Denies fever, chills, or sweats. ENT: Denies rhinorrhea, congestion, sore throat, or otalgia. Reports dental pain to #2 tooth with redness and swelling of gums, facial swelling CARDIOVASCULAR: Denies chest pain, palpitations, or edema. RESPIRATORY: Denies cough or dyspnea. SKIN: Denies rash or itching. MUSCULOSKELETAL: Denies myalgia. NEUROLOGIC: Denies headache All systems reviewed & are unremarkable except as noted in HPI and below PMFSH Past Medical History Medical History (Updated 01/10/23 @ 09:39 by Cindy Roberts NP) History of dental problems Surgical History Surgical History History of History of dilatation and curettage Hx of appendectomy Family History Family History Mother No pertinent past medical history Social History Social History (Updated 01/10/23 @ 09:42 by Cindy Roberts NP) Smoking packs per day: 0.75 Smoking cigarettes per day: 15.0 Years smoked: 20 Smoking pack-years: 15.00 Smoking status: Current every day smoker Tobacco type: cigarettes Alcohol intake: former Substance use: former Substance use type: marijuana Last use: 03/16/21 Living arrangements: with family Additional living arrangements comments: DAUGHTER Gender identity (if verbalized by the patient): Female Spiritual care concerns: No Comments At time of signature, agree with nursing past medical, surgical, social and family history. There is no relevant family history pertinent to the presenting complaint Exam Narrative: GENERAL: Well-appearing, well-nourished, and in no acute distress. HEAD: Normocephalic, atraumatic. EYES: PERRLA and EOMI. ENT: Nares clear, no rhinorrhea or epistaxis. Mucous membranes moist. red swollen gum around #2 tooth with some facial swelling right side, reports foul taste in mouth NECK: Supple no lymphadenopathy. CHEST: Clear to auscultation. No respiratory distress. SAO2 100% on room air HEART: Regular rate and rhythm. No murmur heard. Normal peripheral pulses. SKIN: Warm, dry, no rash. NEURO: No focal deficits. Alert and oriented x3. Course Course Emergency Course: Patient is aware of diagnosis, understands and agrees to treatment plan. Anticipatory guidance given. Patient agrees to follow-up as directed and
== END 2023-01-09 18:26 | disposition home or self-care (01) ==
PROVIDERS: Emergency Provider Registered Nurse
DX: K04.7 Periapical abscess without sinus (principal); F17.210 Nicotine dependence, cigarettes, uncomplicated
CPT/HCPCS: 99213; G0463